=== PATIENT | female | born 1935 | race Caucasian/White ===

== ENCOUNTER 2018-04-29 20:46 | Outpatient (REF) | payer MEDICARE, SELFPAY | END 2018-04-29 20:47 | LOC: NCHCN 20:46 | PROVIDERS: PCP Family Medicine; Visit Provider Family Medicine | DX: N39.0 Urinary tract infection, site not specified (principal) | CPT/HCPCS: 87077; 87086; 87186 ==

== ENCOUNTER 2018-05-20 12:20 | Outpatient (REF) | payer MEDICARE, SELFPAY ==
[2018-05-20 20:26] LABS: Abs Immature Grans 0.02 k/cumm (0.0-0.09); Absolute Basophil Count 0.07 k/cumm (0.0-0.2); Absolute Eosinophil Count 1.66 k/cumm (0.0-0.7); Absolute Lymphocyte Count 2.78 k/cumm (1.2-3.4); Absolute Monocyte Count 0.87 k/cumm (0.11-0.7); Absolute Neutrophil Count 2.84 k/cumm (1.2-6.7); Basophils % 0.8; Eosinophils % 20.1; HCT 44.1 % (36.0-46.0); HGB 14.3 g/dL (12.0-15.5); Immature Grans % 0.2; Lymphocytes % 33.7; Mean Corp. HGB Concentration 32.4 g/dL (32.0-36.0); Mean Corpuscular Hemoglobin 31.7 pg (27.0-33.0); Mean Corpuscular Volume 97.8 fL (80-95); Mean Platelet Volume 10.7 fL (8.0-11.0); Monocytes % 10.6; Neutrophils % 34.6; Platelet Count 220 x1000/uL (130-400); RBC 4.51 m/cumm (4.00-5.20); RBC Distribution Width 13.4 % (11.7-14.6); White Blood Cell Count 8.24 k/cumm (4.4-10.8)
[2018-05-20 20:43] LABS: ALT 21 U/L (12-78); AST 22 U/L (15-37); Albumin 3.6 g/dL (3.4-5.0); Alkaline Phosphatase 78 U/L (46-116); Anion Gap 3.1 mmol/L (3-11); BUN 15 mg/dL (7-18); Bilirubin, Total 0.4 mg/dL (0.2-1.0); CO2 31.9 mmol/L (21.0-32.0); Calcium 9.5 mg/dL (8.5-10.1); Chloride 104 mmol/L (98-107); Estimated GFR 43.12 (mL/min/1.73m2); Glucose 82 mg/dL (70-100); Potassium 4.8 mmol/L (3.5-5.1); Sodium 139 mmol/L (136-145); Total Protein 6.9 g/dL (6.4-8.2)
[2018-05-20 21:50] LABS: Diff Comment Agrees w/ Instrument; RBC Morphology Normal
== END 2018-05-20 12:21 ==
LOC: NCHCN 12:20
PROVIDERS: PCP Family Medicine; Visit Provider Nurse Practitioner Family
DX: R19.7 Diarrhea, unspecified (principal)
CPT/HCPCS: 80053; 85025

== ENCOUNTER 2018-11-26 14:46 | Outpatient (REF) | payer MEDICARE, SELFPAY | END 2018-11-26 15:06 | LOC: NCHCN 14:46 | PROVIDERS: PCP Family Medicine; Visit Provider Family Medicine | DX: N39.0 Urinary tract infection, site not specified (principal) | CPT/HCPCS: 87077; 87086; 87186 ==

== ENCOUNTER 2018-12-07 23:03 | Outpatient (REF) | payer MEDICARE, SELFPAY | END 2018-12-07 23:23 | LOC: NCHCN 23:03 | PROVIDERS: PCP Family Medicine; Visit Provider Family Medicine | DX: N39.0 Urinary tract infection, site not specified (principal) | CPT/HCPCS: 87077; 87086; 87186 ==

== ENCOUNTER 2018-12-24 11:22 | Outpatient (REF) | payer MEDICARE, SELFPAY ==
[2018-12-24 20:42] LABS: ALT 17 U/L (12-78); AST 21 U/L (15-37); Albumin 3.5 g/dL (3.4-5.0); Alkaline Phosphatase 77 U/L (46-116); BUN 20 mg/dL (7-18); Bilirubin, Total 0.6 mg/dL (0.2-1.0); CREATININE 1.11 mg/dL (0.55-1.02); Calcium 9.2 mg/dL (8.5-10.1); Chloride 105 mmol/L (98-107); Estimated GFR 47.06 (mL/min/1.73m2); Glucose 86 mg/dL (70-100); Potassium 4.2 mmol/L (3.5-5.1); Sodium 143 mmol/L (136-145); TSH (W/Ref FT4) 1.98 uIU/mL (0.358-3.74); Total Protein 6.7 g/dL (6.4-8.2)
[2018-12-24 20:50] LABS: Abs Immature Grans 0.01 k/cumm (0.0-0.09); Absolute Basophil Count 0.04 k/cumm (0.0-0.2); Absolute Eosinophil Count 0.61 k/cumm (0.0-0.7); Absolute Monocyte Count 0.71 k/cumm (0.11-0.7); Absolute Neutrophil Count 2.59 k/cumm (1.2-6.7); Basophils % 0.7; Eosinophils % 10.2; HCT 43.2 % (36.0-46.0); HGB 14.1 g/dL (12.0-15.5); Immature Grans % 0.2; Lymphocytes % 33.6; Mean Corp. HGB Concentration 32.6 g/dL (32.0-36.0); Mean Corpuscular Hemoglobin 31.8 pg (27.0-33.0); Mean Corpuscular Volume 97.5 fL (80-95); Mean Platelet Volume 10.7 fL (8.0-11.0); Monocytes % 11.9; Neutrophils % 43.4; Platelet Count 226 x1000/uL (130-400); RBC 4.43 m/cumm (4.00-5.20); RBC Distribution Width 13.6 % (11.7-14.6); White Blood Cell Count 5.96 k/cumm (4.4-10.8)
[2018-12-27 10:35] LABS: IgA 302 mg/dL (85-499); Interpretation SEE COMMENTS; Tissue Transglutaminase IgA <1.2 U/mL (<4.0)
== END 2018-12-24 11:42 ==
LOC: NCHCN 11:22
PROVIDERS: PCP Family Medicine; Visit Provider Family Medicine
DX: R19.4 Change in bowel habit (principal); R10.84 Generalized abdominal pain
CPT/HCPCS: 80053; 82784; 83516; 84443; 85025

== ENCOUNTER 2019-04-12 23:00 | Outpatient (REF) | payer MEDICARE, SELFPAY | END 2019-04-12 23:20 | LOC: NCHCN 23:00 | PROVIDERS: PCP Family Medicine; Visit Provider Family Medicine | DX: N39.0 Urinary tract infection, site not specified (principal) | CPT/HCPCS: 87077; 87086; 87186 ==

== ENCOUNTER 2019-05-02 22:32 | Outpatient (REF) | payer MEDICARE, SELFPAY | END 2019-05-02 22:52 | LOC: NCHCN 22:32 | PROVIDERS: PCP Family Medicine; Visit Provider Nurse Practitioner Family | DX: N39.0 Urinary tract infection, site not specified (principal) | CPT/HCPCS: 87077; 87086; 87186 ==

== ENCOUNTER 2020-01-20 14:41 | Outpatient (REF) | payer MEDICARE, SELFPAY ==
[2020-01-20 21:01] LABS: Anion Gap 10.7 mmol/L (3-11); BUN 18 mg/dL (7-18); CO2 26.3 mmol/L (21.0-32.0); CREATININE 0.99 mg/dL (0.55-1.02); Calcium 9.7 mg/dL (8.5-10.1); Chloride 103 mmol/L (98-107); Estimated GFR 53.57 (mL/min/1.73m2); Glucose 86 mg/dL (74-106); Potassium 4.3 mmol/L (3.5-5.1); Sodium 140 mmol/L (136-145)
== END 2020-01-20 15:01 ==
LOC: NCHCN 14:41
PROVIDERS: PCP Family Medicine; Visit Provider Family Medicine
DX: R03.0 Elevated blood-pressure reading, without diagnosis of hypertension (principal); I35.0 Nonrheumatic aortic (valve) stenosis
CPT/HCPCS: 80048

== ENCOUNTER 2020-07-31 16:33 | Outpatient (REF) | payer MEDICARE, SELFPAY ==
[2020-08-05 12:33] LABS: Patient Race White; SARS-CoV-2 RNA Undetected (Undetected); SARS-CoV-2 Specimen Source Nasal
== END 2020-07-31 16:53 ==
LOC: NCHCN 16:33
PROVIDERS: PCP Family Medicine; Visit Provider Nurse Practitioner Family
DX: R06.02 Shortness of breath (principal)
CPT/HCPCS: U0003

== ENCOUNTER 2020-11-21 14:41 | Outpatient (REF) | payer MEDICARE, SELFPAY ==
[2020-11-21 22:08] LABS: Abs Immature Grans 0.03 10^3/uL (0.0-0.06); Absolute Basophil Count 0.04 10^3/uL (0.0-0.2); Absolute Eosinophil Count 0.69 10^3/uL (0.0-0.7); Absolute Lymphocyte Count 2.37 10^3/uL (1.2-3.4); Absolute Monocyte Count 0.67 10^3/uL (0.1-0.8); Absolute Neutrophil Count 3.52 10^3/uL (1.2-6.7); Basophils % 0.5; Eosinophils % 9.4; HCT 44.6 % (36.0-46.0); HGB 14.6 g/dL (11.2-15.7); Immature Grans % 0.4; Lymphocytes % 32.4; MCH 31.5 pg (27.0-33.0); MCHC 32.7 % (32.0-36.0); MCV 96.3 fL (80-95); MPV 10.6 fL (8.0-11.0); Monocytes % 9.2; Neutrophils % 48.1; Nucleated RBC 0 %; Platelet Count 240 10^3/uL (130-400); RBC 4.63 10^6/uL (3.93-5.22); RDW 12.9 % (11.7-14.6); RDW-SD 45.5 fL; WBC 7.32 10^3/uL (4.4-10.8)
[2020-11-21 22:45] LABS: Vitamin B12 470 pg/mL (193-986)
[2020-11-21 23:00] LABS: C-Reactive Protein 0.17 mg/dL (0.0-0.3)
== END 2020-11-21 14:42 | disposition home or self-care (01) ==
LOC: NCHCN 14:41
PROVIDERS: PCP Family Medicine; Visit Provider Family Medicine
DX: R53.83 Other fatigue (principal); N28.9 Disorder of kidney and ureter, unspecified; M85.80 Other specified disorders of bone density and structure, unspecified site
CPT/HCPCS: 82607; 85025; 86140

== ENCOUNTER 2021-03-21 08:28 | Outpatient (REF) | payer MEDICARE, SELFPAY ==
[2021-03-23 14:11] LABS: COVID-19 RT-PCR UVMMC Result Negative (Negative)
== END 2021-03-22 08:29 | disposition home or self-care (01) ==
LOC: NCHCN 08:28
PROVIDERS: PCP Family Medicine; Visit Provider Nurse Practitioner Family
DX: Z20.822 Contact with and (suspected) exposure to COVID-19 (principal); J06.9 Acute upper respiratory infection, unspecified
CPT/HCPCS: U0003

== ENCOUNTER 2021-03-28 11:46 | Outpatient (REF) | payer MEDICARE, SELFPAY ==
[2021-03-28 20:17] LABS: Abs Immature Grans 0.01 10^3/uL (0.0-0.06); Absolute Basophil Count 0.07 10^3/uL (0.0-0.2); Absolute Eosinophil Count 1.11 10^3/uL (0.0-0.7); Absolute Lymphocyte Count 1.61 10^3/uL (1.2-3.4); Absolute Neutrophil Count 3.49 10^3/uL (1.2-6.7); Eosinophils % 15.9; HCT 40.3 % (36.0-46.0); HGB 13.9 g/dL (11.2-15.7); Immature Grans % 0.1; MCH 33.1 pg (27.0-33.0); MCHC 34.5 % (32.0-36.0); MPV 9.9 fL (8.0-11.0); Nucleated RBC 0 %; Platelet Count 249 10^3/uL (130-400); RDW 12.2 % (11.7-14.6); RDW-SD 42.5 fL; WBC 6.99 10^3/uL (4.4-10.8)
[2021-03-28 20:23] LABS: ALT 24 U/L (14-59); AST 22 U/L (15-37); Albumin 3.9 g/dL (3.4-5.0); Alkaline Phosphatase 66 U/L (46-116); Anion Gap 11.3 mmol/L (3-11); BUN 10 mg/dL (7-18); Bilirubin, Total 0.7 mg/dL (0.2-1.0); CO2 24.7 mmol/L (21.0-32.0); Calcium 8.8 mg/dL (8.5-10.1); Chloride 92 mmol/L (98-107); Estimated GFR 52.82 (mL/min/1.73m2); Glucose 93 mg/dL (74-106); Potassium 4.2 mmol/L (3.5-5.1); Sodium 128 mmol/L (136-145); Total Protein 6.7 g/dL (6.4-8.2)
== END 2021-03-28 11:47 | disposition home or self-care (01) ==
LOC: NCHCN 11:46
PROVIDERS: PCP Family Medicine; Visit Provider Nurse Practitioner Family
DX: R05 Cough (principal)
CPT/HCPCS: 80053; 85025

== ENCOUNTER 2021-04-02 12:27 | Outpatient (REF) | payer MEDICARE, SELFPAY ==
[2021-04-02 21:09] LABS: Anion Gap 7.6 mmol/L (3-11); BUN 12 mg/dL (7-18); CO2 28.4 mmol/L (21.0-32.0); CREATININE 1.2 mg/dL (0.55-1.02); Calcium 9.4 mg/dL (8.5-10.1); Chloride 102 mmol/L (98-107); Glucose 94 mg/dL (74-106); Potassium 4.2 mmol/L (3.5-5.1); Sodium 138 mmol/L (136-145)
== END 2021-04-02 12:28 | disposition home or self-care (01) ==
LOC: NCHCN 12:27
PROVIDERS: PCP Family Medicine; Visit Provider Nurse Practitioner Family
DX: E87.1 Hypo-osmolality and hyponatremia (principal)
CPT/HCPCS: 80048

== ENCOUNTER 2021-07-11 16:01 | Outpatient (REF) | payer MEDICARE, SELFPAY ==
[2021-07-13 22:15] LABS: COVID-19 RT-PCR UVMMC Result Negative (Negative)
== END 2021-07-11 16:02 | disposition home or self-care (01) ==
LOC: NCHCN 16:01
PROVIDERS: PCP Family Medicine; Visit Provider Internal Medicine
DX: Z20.822 Contact with and (suspected) exposure to COVID-19 (principal); J06.9 Acute upper respiratory infection, unspecified
CPT/HCPCS: U0003

== ENCOUNTER 2021-09-30 21:06 | Outpatient (REF) | payer MEDICARE, SELFPAY | END 2021-09-30 21:07 | disposition home or self-care (01) | LOC: NCHCN 21:06 | PROVIDERS: PCP Family Medicine; Visit Provider Internal Medicine | DX: N39.0 Urinary tract infection, site not specified (principal) | CPT/HCPCS: 87077; 87086; 87186 ==